=== PATIENT | female | born 1995 | race American Indian/Alaskan Native ===

== ENCOUNTER 2017-09-14 17:49 | Emergency (ER) | payer MEDICAID ==
[2017-09-14 17:57] VITALS: BP 118/62
[2017-09-14] MEDS ORDERED: KEFLEX PO ONE (18:07)
[2017-09-14] MEDS ORDERED: TYLENOL PO ONE (18:07)
--- NOTE | 2017-09-14 18:11 | Emergency Department Report ---
Abscess Boil HPI - HPI Chief Complaint: Skin/Abscess/Foreign Body Stated Complaint: BOIL Time Seen by Provider: 09/14/17 18:00 Duration: 1 Week Location: Perianal Severity: Mild (610) History: Yes Fever (patient says she had a fever but it broke), Yes Pain (6/ stent to left labia), Yes Purulent Drainage (started with bloody drainage now puslike drainage), No Previous History, No Insect Bite HPI: Patient came to the hospital report that she has had a boil on her inner thigh vaginal area for over a week. She said that it started out small and she noticed after she shaved that there was a small bump. She says she tried to pick at it and it became bigger and more painful. She said over the last 2 days has been draining a lot but she is still here to be seen because she is 7 weeks and she needs to know if she needs to be on antibiotic. 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 She does not have any abdominal pain, nausea or vomiting. Denies any vaginal bleeding or discharge. Denies any urinary burning frequency or urgency. Has no related issue. Pain is 6 out of 10 and feels sore and throbbing. Immunizations up-to-date. Person is worse with sitting and better with resting. Home Medications: Previous Rx's Medication Instructions Recorded Last Taken Type Azithromycin [Zithromax] 500 mg PO QDAY #3 tablet 09/18/13 Unknown Rx Bromfed Dm 5 ml PO QID #120 ml 09/18/13 Unknown Rx Acetaminophen [Non-Aspirin Extra 500 mg PO Q8H PRN 4 Days #12 tablet 09/14/17 Unknown Rx Strength] Cephalexin [Keflex] 500 mg PO Q8HR 10 Days #30 cap 09/14/17 Unknown Rx Metoclopramide [Reglan] 10 mg PO Q8H PRN 1 Days #12 tab 09/14/17 Unknown Rx Allergies/Adverse Reactions: Allergies Allergy/AdvReac Type Severity Reaction Status Date / Time No Known Allergies Allergy Unverified 09/18/13 20:24 ED Review of Systems ROS: Stated complaint: BOIL Other details as noted in HPI Comment: All other systems reviewed and negative Constitutional: no symptoms reported Respiratory: no symptoms reported Cardiovascular: denies: chest pain, palpitations, dyspnea on exertion, orthopnea , edema, syncope, paroxysmal nocturnal dyspnea Gastrointestinal: denies: abdominal pain, nausea, vomiting, diarrhea, constipation, hematemesis, melena Genitourinary: denies: urgency, dysuria, frequency, hematuria, discharge, abnormal menses, dyspareunia Musculoskeletal: denies: back pain, joint swelling, arthralgia, myalgia Skin: other (patient reports boil to inner thigh and vaginal area) Neurological: denies: headache, weakness, numbness, paresthesias, confusion, abnormal gait, vertigo ED Past Medical Hx - Past Medical History Previous Medical History?: Yes Hx Asthma: Yes - Surgical History Past Surgical History?: Yes - Family History Family history: hypertension - Social History Smoking Status: Never Smoker Substance Use Type: None - Medications Home Medications: Home Medications Medication Instructions Recorded Confirmed Last Taken Type Azithromycin [Zithromax] 500 mg PO QDAY #3 tablet 09/18/13 Unknown Rx Bromfed Dm 5 ml PO QID #120 ml 09/18/13 Unknown Rx Acetaminophen [Non-Aspirin Extra 500 mg PO Q8H PRN 4 Days #12 tablet 09/14/17 Unknown Rx Strength] Cephalexin [Keflex] 500 mg PO Q8HR 10 Days #30 cap 09/14/17 Unknown Rx Metoclopramide [Reglan] 10 mg PO Q8H PRN 1 Days #12 tab 09/14/17 Unknown Rx ED Abscess Boil Physical Exam - Exam General: Vital signs noted. No distress. Alert and acting appropriately. This is a 21-year-old female well-nourished well-developed in no acute distress. Front/Back of Body, Lg (Color): 1 - Patient with 3 cm fluctuant area to left labia. Area expressed and moderate amount of pus drained from side. Area is already draining and no need for incision and drainage. In instructed to place warm compresses on top of red in place over affected site 3-4 times a day to facilitate drainage. No erythema noted. Area is tender to palpate Size: 3 cm Exam: Yes Tenderness (tenderness to palpate the left labia area), Yes Fluctuance (the fluctuance left labia abscess site), Yes Normal Neurologic Exam (no focal neurological deficit), Yes Normal Circulation (clubbing, cyanosis or edema. No neurovascular compromise +2 pulses to extremities.), No Surrounding Cellulites/Erythema, No Lymphangitis, No Crepitation, No Heart Murmur Exam: Lungs: Clear to auscultate bilaterally, no rhonchi wheezes or rales. CV: Flank listed. Tachycardic at 106, regular rhythm and no murmur. mouth: Moist, no pharyngeal erythema or exudate. Tongue is normal, uvula is midline and oral airways patent. Neck: Full range of motion, no adenopathy. supple I & D Note - I & D Note I & D Note: Abscess: Patient abscess the left labia that's already draining pus. It has been draining for 2 days and patient here requested antibiotic. Patient 7 weeks and is followed by Dr. Beck. Area is tender to palpate and fluctuant. Patient said that area is decreasing in size. No need for incision and drainage. ED Course Vital Signs 09/14/17 17:54 Temperature 98.4 F Pulse Rate 106 H Respiratory 18 Rate Blood Pressure 118/62 O2 Sat by Pulse 99 Oximetry Vital Signs 09/14/17 09/14/17 17:54 18:22 Temperature 98.4 F Pulse Rate 106 H 92 H Respiratory 18 Rate Blood Pressure 118/62 O2 Sat by Pulse 99 Oximetry - Reevaluation(s) Reevaluation #1: 09/14/17 18:23 Patient received Keflex 500 mg, Tylenol 650 mg and Reglan 10 mg by mouth. She received Reglan for nausea prevention. Critical care attestation.: If time is entered above; I have spent that time in minutes in the direct care of this critically ill patient, excluding procedure time. ED Medical Decision Making - Medical Decision Making ED course: An here reports that she has boil to her left vaginal thigh area times one week and it has been draining over the last 2 days. She reports pain. She says she had a fever at which she broke. Patient now requests then to be seen because she states she is 7 weeks and she doesn't know she is to be an antibiotic. 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 Beck on 09/24/2016. She is on vitamin. Vital signs are stable she is afebrile. Given Keflex 500 mg, Reglan 10 mg by mouth to prevent nausea and Tylenol 650 mg by mouth to manage pain. Patient requesting to be on some nausea medication because she said she gets nauseous when she takes pills. I discussed diagnosis, treatment plan and follow -up visit with HEAD COACH with patient. Was understanding and an patient's discharge home in stable condition with prescription for Reglan, Keflex and Tylenol. Area cleansed with normal saline and dry sterile dressing placed inside. ED Disposition Clinical Impression: Abscess of labia majora Disposition: TO HOME OR SELFCARE Is pt being admited?: No Does the pt Need Aspirin: No Condition: Stable Instructions: Abscess (ED) Additional Instructions: Take antibiotic as prescribed Keep affected area clean and dry. Followed discharge instruction on acute wound care . Please return to emergency room if you develop i redness, streaking, fever, increased pain, increased in size abscess otherwise please call your HEAD COACH office tomorrow to let them know that you were in emergency room and treated for abscess and was started on antibiotic. Please schedule an appointment for follow-up visit. His apply warm compresses to affected area on top of dry washcloth 3-4 times a day to facilitate drainage. Please do not apply warm compresses directly to skin. He can also shower by warm water to the affected area while in shower Prescriptions: Acetaminophen [Non-Aspirin Extra Strength] 500 mg PO Q8H PRN 4 Days #12 tablet PRN Reason: Pain Cephalexin [Keflex] 500 mg PO Q8HR 10 Days #30 cap Metoclopramide [Reglan] 10 mg PO Q8H PRN 1 Days #12 tab PRN Reason: Nausea And Vomiting Referrals: INDIGO POLLARD MD [Staff Physician] - 2-3 Days Forms: Accompanied Note, Work/School Release Form(ED)
[2017-09-14] MEDS ORDERED: REGLAN PO ONE (18:16)
== END 2017-09-14 18:43 | disposition home or self-care (01) ==
LOC: ED 17:49
DX: O23.591 Infection of other part of genital tract in pregnancy, first trimester (principal); N76.4 Abscess of vulva; J45.909 Unspecified asthma, uncomplicated; Z3A.01 Less than 8 weeks gestation of pregnancy
CPT/HCPCS: 99282

== ENCOUNTER 2017-10-19 03:47 | Emergency (ER) | payer MEDICAID ==
[2017-10-19 04:29] VITALS: BP 114/66
[2017-10-19 05:03] LABS: Basophils % (Auto) 0.3 % (0.0-1.8); Eosinophils # (Auto) 0.1 K/mm3 (0.0-0.4); Hematocrit 37.3 % (30.3-42.9); Hemoglobin 12.5 gm/dl (10.1-14.3); Lymphocytes # (Auto) 1.9 K/mm3 (1.2-5.4); Mean Corpuscular HGB Conc 34 % (30-34); Mean Corpuscular Hemoglobin 29 pg (28-32); Mean Corpuscular Volume 87 fl (79-97); Monocytes # (Auto) 0.9 K/mm3 (0.0-0.8); Monocytes % (Auto) 12.2 % (0.0-7.3); Platelet Count 215 K/mm3 (140-440); Red Blood Count 4.29 M/mm3 (3.65-5.03); Red Cell Distribution Width 13.9 % (13.2-15.2)
== END 2017-10-19 17:52 | disposition left against medical advice (07) ==
LOC: ED 03:47
DX: N93.8 Other specified abnormal uterine and vaginal bleeding (principal); Z53.21 Procedure and treatment not carried out due to patient leaving prior to being seen by health care provider
CPT/HCPCS: 36415; 84702; 85025; 86850; 86900; 86901

== ENCOUNTER 2018-04-15 09:32 | Outpatient (CLI) | payer MEDICAID ==
[2018-04-15 10:26] VITALS: BP 121/78
== END 2018-04-15 10:39 | disposition home or self-care (01) ==
LOC: TRG 09:32
PROVIDERS: ATTEND Obstetrics & Gynecology
DX: O47.1 False labor at or after 37 completed weeks of gestation (principal); Z3A.37 37 weeks gestation of pregnancy
CPT/HCPCS: 59025

== ENCOUNTER 2018-04-26 10:14 | Outpatient (CLI) | payer MEDICAID ==
[2018-04-26 10:43] VITALS: BP 121/77
== END 2018-04-26 11:25 | disposition home or self-care (01) ==
LOC: TRG 10:14
PROVIDERS: ATTEND Obstetrics & Gynecology
DX: O47.1 False labor at or after 37 completed weeks of gestation (principal); Z3A.38 38 weeks gestation of pregnancy
CPT/HCPCS: 59025

== ENCOUNTER 2018-04-26 20:31 | Outpatient (CLI) | payer BC, MEDICAID ==
[2018-04-27] MEDS ORDERED: VISTARIL PO ONE (01:55)
[2018-04-27] MEDS ORDERED: VISTARIL ONE (01:56)
[2018-04-28 16:45] VITALS: BP 135/77
== END 2018-04-27 01:57 | disposition home or self-care (01) ==
LOC: TRG 20:31
PROVIDERS: ATTEND Obstetrics & Gynecology
DX: O47.1 False labor at or after 37 completed weeks of gestation (principal); Z3A.38 38 weeks gestation of pregnancy
CPT/HCPCS: 59025; Q0177